=== PATIENT | male | born 1960 | race Caucasian/White ===

== ENCOUNTER → 2016-12-31 | Outpatient (CLI) | payer BC ==
--- NOTE | 2017-01-01 08:22 | MRI ---
Study: MRI of the Right Knee. Indication: KNEE PAIN Technique: Multiplanar, multi sequence MRI of the right knee was obtained without intravenous contrast. Comparison: None. Findings: Linear increased PD signal ACL indicating sequela of previous interstitial injury. PCL and lateral collateral ligament complex intact. MCL is lax and bowed indicating sequela of a remote MCL sprain. No acute tear. Prominent oblique undersurface tear posterior horn and body medial meniscus with mild intrasubstance cystic change as well as ill-defined parameniscal cyst formation along the peripheral margins of the posterior horn and body. The largest cyst along the peripheral margin of the junction measures up to 13 mm. Body extruded by 3 mm. Areas of grade 2 chondral thinning throughout the medial compartment. Degenerative signal anterior horn/root lateral meniscus.. No high-grade chondral defect throughout the lateral compartment. Low-grade tendinosis quadriceps tendon insertion and patellar tendon origin without tear. Patella normally located. No high-grade chondral defect patellofemoral compartment. Small knee effusion. No acute fracture. Impression: Oblique undersurface tearing posterior horn and body medial meniscus with parameniscal cyst formation as above. Degenerative signal anterior horn/root lateral meniscus. Mild medial compartment chondrosis. Remote MCL sprain. Remote interstitial injury ACL without acute tear. Low-grade tendinosis quadriceps tendon insertion and patellar tendon origin. Small knee effusion. Electronically signed by: Alex Hernandez MD 01/01/2017 8:20 AM CDT
== END | disposition home or self-care (01) ==
LOC: MRI 08:52
PROVIDERS: ATTEND Nurse Practitioner Family
DX: M25.461 Effusion, right knee (principal); M76.51 Patellar tendinitis, right knee

== ENCOUNTER 2018-04-16 09:51 | Inpatient (IN) | payer BC ==
[2018-04-16] MEDS ORDERED: SODIUM CHLORIDE 0.9% (FLUSH) 10 ML SYG IV PRN ×2 (10:02→13:40)
--- NOTE | 2018-04-16 10:19 | RAD ---
EXAM DESCRIPTION: Chest,1 View CLINICAL HISTORY: 58 years Male, ACUTE MENTAL STATUS CHANGES COMPARISON: 08/04/2008 IMPRESSION: The heart is enlarged, with borderline central pulmonary vascular congestion. There is no confluent airspace consolidation, pleural effusion, or pneumothorax. Normal variant azygos lobe again demonstrated. No acute osseous abnormality. Electronically signed by: Lawson Rutherford MD 04/16/2018 10:18 AM [employer]
--- NOTE | 2018-04-16 10:39 | CT ---
EXAM DESCRIPTION: Head. CT head without contrast. CLINICAL HISTORY: ACUTE AMS, ACUTE APHASIA COMPARISON: None available TECHNIQUE: Multiple axial images of the head without contrast. Multiplanar reformatted images. This exam was performed according to our departmental dose-optimization program, which includes automated exposure control, adjustment of the mA and/or kV according to patient size and/or use of iterative reconstruction technique. FINDINGS: There is no CT evidence of intracranial hemorrhage, mass effect, or large territory infarction. Mild generalized volume loss. Mild patchy supratentorial white matter hypodensities. There are no abnormal extra-axial fluid collections. Calcific plaque in the visualized arteries. There is no acute calvarial defect. The visualized paranasal sinuses and the mastoids are clear. IMPRESSION: 1. No CT evidence of an acute intracranial abnormality. If there is concern for an acute or subacute infarct, consider follow-up MRI. 2. Mild senescent changes. Electronically signed by: Lawson Rutherford MD 04/16/2018 10:38 AM [facility]
--- NOTE | 2018-04-16 11:05 | ED.PDOC ---
History of Present Illness - General Chief Complaint: Neuro Symptoms/Deficits Time Seen by Provider: 04/16/18 10:02 Source: patient, family - History of Present Illness Initial Comments: AT 9 AM TODAY, ACUTE ONSET OF SHORT-TERM MEMORY LOSS. PT SAID HE CALLED HIS AT THAT TIME BECAUSE HE WAS FEELING "FUNNY". DURING THEIR CONVERSATION, HIS NOTICED HE WAS HAVING TROUBLE REMEMBERING EVENTS FROM THE RECENT COUPLE OF DAYS, THUS BROUGHT TO ER. NO WEAKNESS OF EXTREMETIES, FACE. NO SPEECH PROBLEMS. JUST TROUBLE WITH RECALL. PMH NONE. MEDS NONE. Timing/Duration: 1-3 hours Severity: severe Improving Factors: nothing Worsening Factors: nothing Allergies/Adverse Reactions: Allergies NO KNOWN ALLERGY Allergy (Verified 04/16/18 10:15) Review of Systems - Review of Systems Constitutional: Denies: chills, fever, malaise, weakness EENTM: Denies: blurred vision, ear pain, nose congestion, throat pain Respiratory: Denies: cough, short of breath, wheezing Cardiology: Denies: chest pain, palpitations Gastrointestinal/Abdominal: Denies: abdominal pain, diarrhea, nausea, vomiting Genitourinary: Denies: dysuria, frequency Musculoskeletal: Denies: joint pain, muscle pain, neck pain Skin: States: no symptoms reported Neurological: States: other - APHSIA, SHORT TERM MEMORY LOSS. Denies: anxiety, depressed, headache, numbness, paresthesia, seizure, weakness Endocrine: Denies: excessive sweating, intolerance to cold, intolerance to heat Hematologic/Lymphatic: Denies: blood clots, easy bleeding, swollen glands Past Medical History (General) - Patient Medical History Hx Seizures: No Hx Stroke: No Hx Dementia: No Hx Asthma: No Hx of COPD: No Hx Cardiac Disorders: No Hx Congestive Heart Failure: No Hx Pacemaker: No Hx Hypertension: No Hx Thyroid Disease: No Hx Diabetes: No Hx Gastroesophageal Reflux: No Hx Renal Disease: No Hx Cancer: No Hx of HIV: No Hx Hepatitis C: No Hx MRSA: No - Vaccination History Hx Tetanus, Diphtheria Vaccination: No Hx Influenza Vaccination: No Hx Pneumococcal Vaccination: No Immunizations Up to Date: No - Social History Hx Tobacco Use: Yes Hx Chewing Tobacco Use: No Hx Alcohol Use: No Hx Substance Use: No Hx Substance Use Treatment: No Hx Depression: No Feels Threatened In Home Enviroment: No Feels Threatened In a Relationship: No Hx Physical Abuse: No Hx Emotional Abuse: No Hx Suspected Abuse: No - Activities of Daily Living Hospice Agency (if applicable):: None - Female History Patient is a Female of Child Bearing Age (10 -59 yrs old): No Patient : No Family Medical History - Family History Mother Family History: Unknown Physical Exam - Physical Exam General Appearance: Alert, Well Groomed, Well Nourished Eye Exam: bilateral normal ENT Exam: normal ENT inspection, hearing grossly normal, TMs normal, pharynx normal Neck: non-tender, full range of motion, supple Respiratory: chest non-tender, lungs clear, normal breath sounds, no respiratory distress Cardiovascular/Chest: normal peripheral pulses, regular rate, rhythm, no edema, no murmur Peripheral Pulses: radial,right: 2+, radial,left: 2+, dorsalis pedis,right: 2+, dorsalis pedis,left: 2+, posterior tibialis,right: 2+, posterior tibialis,left: 2+ Gastrointestinal/Abdominal: normal bowel sounds, non tender, soft, no organomegaly, no pulsatile mass Back Exam: normal inspection, no CVA tenderness Extremities Exam: non-tender, normal range of motion, no evidence of injury Mental Status: alert, other - INITIAL EXAM: OX1 (TO PLACE BUT DIDN'T KNOW WHO PRESIDENT WAS OR WHAT YEAR IT IS OR WHAT HE ORDERED ON [employer] LAST NIGHT.) UPON RE-EXAM 30 MIN LATER, HE IS OX3 AND REMEMBERS WHAT HE ORDERED ON [employer] LAST NIGHT. 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 UPON RE-EXAMINATION, PT'S MEMORY IS IMPROVING. HE NOW KNOWS WHAT YEAR IT IS AND NOW REMEMBERS THINGS HIS ASKED HIM TO HELP WITH YESTERDAY (UPON INITIAL ER PRESENTAION, HE DID NOT RECALL ANY EVENTS OF YESTERDAY). I REVIEWED THE ALTEPLASE CONTRAINDICATION CHECKLIST FOR ACUTE STROKE. PER D/W PT AND HIS OF RISKS, BENEFITS, AND ALTERNATIVES, THEY DO NOT WANT TO TAKE THE ALTEPLASE DUE TO RISKS. THEY WOULD LIKE TO CONTINUE TO OBSERVE IN ER SINCE HE IS IMPROVING, WHICH IS REASONABLE. 04/16/18 11:04 04/16/18 12:48 W/U IS WNL: CBC, CMP, CARDIAC ENZ, UA, UDS, CXR, HEAD CT, EKG NSR. PT IS BACK TO 100% PER PT, HIS , AND REPEAT EXAM. I D/W HOSPITALIST, MAXIME GANDHI, AND [facility] IS ACCEPTING CARE FOR OBSERVATION TO ENSURE NO RECURRENCE OR WORSENING. AT THAT TIME, THEY WILL CONSIDER FURTHER W/U SUCH MRI OR CAROTID U/S PER THEIR DISCRETION. THANK YOU MAXIME AND [facility] FOR ACCEPTING FURTHER CARE OF OUR PATIENT. Stroke Information - Onset of Symptoms Symptoms of Stroke: Aphasia - Contraindications Antithrombotic Contraindication: Treatment not indicated - PT IMPROVED RAPIDLY DURING ER ADMISSION, SX RESOLVED 100%. Departure - Departure Clinical Impression: TIA (transient ischemic attack), Aphasia Disposition: Admit Patient Condition: Good Departure Forms: Patient Portal Self Enrollment Diet: resume usual diet Referrals: Jaleel Yun MD [Primary Care Provider] - 1-2 Weeks Decision To Admit - Decistion To Admit Decision to Admit Reason: Admit from ER Decision to Admit Date: 04/16/18 Decision to Admit Time: 12:54
--- NOTE | 2018-04-16 13:20 | HP ---
SUPERVISING PHYSICIAN: Geraldo Wasserman M.D. CHIEF COMPLAINT: Altered mental status and confusion. HISTORY OF PRESENT ILLNESS: This is a 58 year-old male patient who about 9:00 AM this morning had a change in mental status. He was confused. His mother actually came over to his house and he forgot that he was supposed to go to [place] with his to a doctor's appointment. He did not know where he was, did not know what year it was. He lost all memory of the last several days and he was brought to the Emergency Room. In the Emergency Room he was found to have no weakness of his extremities or his face. He did not have any speech problems, he just had trouble with recent memory. His lab showed a WBC of 4.4 with hemoglobin 16, hematocrit 47.2, platelets 230. His chemistries were within normal limits, including his cardiac enzymes. Glucose was 93. Urinalysis was within normal limits. Urine drug screen was all negative. CT of the head showed no CT evidence of an acute intracranial abnormality and senescent changes. His chest x-ray showed the heart is enlarged with a borderline central pulmonary vascular congestion There is no confluent airspace consolidation, pleural effusion or pneumothorax and no acute osseous abnormality. While he was in the Emergency Room his memory came back. He could recall the current date. He had recent recall. He was afebrile. Heart rate 62, blood pressure 141/68, it did get as high as 153/71. Respiratory rate was 18, O2 sat was 98% on room air. He has no significant medical history except he does smoke and his dad has coronary artery stenosis as well as hypertension. I was called to place the patient in observation overnight to initiate a workup for stroke/transient ischemic attack. PAST MEDICAL HISTORY: 1. Knee pain. 2. Chronic sinus infection. PAST SURGICAL HISTORY: 1. Hernia repair. 2. Sinus surgery with a metal plate on his left sinus. 3. Meniscus repair of the right knee times 2. CURRENT MEDICATIONS: [id number] medications that include: 1. Flonase. 2. Romina. 3. Advil. ALLERGIES: NO KNOWN DRUG ALLERGIES. FAMILY HISTORY: His mother is healthy. His dad is positive for coronary artery stenosis and hypertension. He has 2 healthy children. SOCIAL HISTORY: He lives in [place]. He is unemployed. He has 2 children. He smokes approximately 2 packs of cigarettes per week. He rarely drinks and alcoholic beverage and denies any illicit drug use. REVIEW OF SYSTEMS: GENERAL: Positive for weight changes. He has tried to lose weight and he has lost about 20 pounds in the last 2 or 3 months. Negative for fatigue or fever. HEENT: Positive for left eye pain upon admission to the Emergency Room but negative for blurred vision, ear pain or sore throat. RESPIRATORY: Negative for coughing, wheezing or shortness of breath. CARDIAC: Negative for chest pain, palpitations or tachycardia. GASTROINTESTINAL: Negative for abdominal pain, nausea, vomiting, diarrhea. GENITOURINARY: Negative for dysuria, hematuria or polyuria. MUSCULOSKELETAL: Negative for arthralgias, myalgias or neck pain. SKIN: Negative for rashes or lesions. NEUROLOGIC: Positive for aphasia and short term memory loss. Negative for anxiety, headache, seizures or paresthesias. HEMATOLOGIC: Negative for easy bleeding, easy bruising or abnormal blood clotting. PHYSICAL EXAMINATION: VITAL SIGNS: Temperature 97.9, heart rate 56, blood pressure 115/75, respiratory rate 18, O2 sat 98% on room air. GENERAL: This is a 58 year-old male patient lying in his hospital bed. He is in no acute distress. HEENT: Normocephalic and atraumatic. Pupils are equal and reactive. Oropharynx is clear. NECK: Supple without mass. RESPIRATORY: Essentially clear to auscultation bilaterally. CHEST: There is equal rise and fall of the chest with inspiration and expiration. CARDIOVASCULAR: Regular rate and rhythm. He is slightly bradycardic. GASTROINTESTINAL: Abdomen is soft, nondistended, non-tender. Bowel sounds are positive. GENITOURINARY: Deferred. SKIN: Warm and dry. No lesions or rashes noted. EXTREMITIES: No clubbing, cyanosis or edema. NEUROLOGIC: He is awake, alert and oriented times three. Cranial nerves II- XII are grossly intact. LABORATORY: Labs and films are as per the History of Present Illness. He had a carotid artery ultrasound and it showed: 1) Mild atherosclerotic plaque in each carotid bulb and ICA origin. 2) There is no significant stenosis, less than 50% at each ICA origin. 3) Bilateral antegrade vertebral artery flow. All other labs and films have been reviewed via the EMR. ASSESSMENT: 1. Altered mental status with confusion and short term memory loss most likely a transient ischemic attack. 2. Elevated blood pressure without diagnosis of hypertension that is now normalized. 3. Chronic sinusitis requiring sinus surgery in the past. 4. Tobacco abuse presently a 2 pack per week smoker. PLAN: We will place the patient in Observation. I have initiated the CVA/TIA order set. He will be placed on an aspirin daily and I have restarted his over- the-counter home medications. He has not had a cardiac workup, so it would probably be beneficial at his age to have a cardiac workup. He sees Dr. Yun. He will also need an MRI of the brain. Will watch his blood pressure overnight as he may need to be started on a low dose of an antihypertensive. Will also do a fasting lipid panel in the morning as he also may need to be placed on a statin. Will do neurologic check every 2 hours. 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 He should be discharged in the morning if there are no issues overnight. #[id number] [facility]
[2018-04-16] MEDS ORDERED: TEMAZEPAM 15 MG CAP PO PRN (13:44)
[2018-04-16] MEDS ORDERED: ACETAMINOPHEN 325 MG TAB PO PRN (13:44)
[2018-04-16] MEDS ORDERED: ONDANSETRON INJ 4 MG/2 ML VIAL IV PRN (13:44)
[2018-04-16] MEDS ORDERED: IV SET AND CAP CHANGE INJ INJ SCH (14:00)
--- NOTE | 2018-04-16 16:07 | US ---
Procedure: US CAROTID DOPPLER BILATERAL Exam Date: 04/16/2018 Ordering Provider: MAXIME GANDHI Clinical Indication: tia Comparison: None TECHNIQUE : Real-time cerebrovascular ultrasonography was obtained from sternal notch to the angle of the mandible bilaterally utilizing nelson scale, color flow and spectral Doppler analysis. Systolic velocity ratios were calculated for internal carotid artery to common carotid artery bilaterally. FINDINGS: RIGHT CAROTID BIFURCATION: Mild atherosclerotic plaque. Peak systolic and end-diastolic velocities in the right internal carotid artery are 87 and 25 cm/s. Internal carotid/common carotid ratio is 0.9. Right vertebral flow is antegrade. LEFT CAROTID BIFURCATION: Mild atherosclerotic plaque. Peak systolic and end-diastolic velocities in the left internal carotid artery are 63 and 20 cm/s. Internal carotid/common carotid ratio is 0.6. Left vertebral flow is antegrade. IMPRESSION: 1. Mild atherosclerotic plaque in each carotid bulb and ICA origin. 2. There is no significant stenosis (less than 50%) at either ICA origin. 3. Bilateral antegrade vertebral artery flow. Electronically signed by: Yoav Peralta MD 04/16/2018 4:05 PM [facility]
[2018-04-16] MEDS: IBUPROFEN 400 MG TAB PO PRN (20:13)
[2018-04-16] MEDS: SODIUM CHLORIDE 0.9% (FLUSH) 10 ML SYG IV SCH (20:45)
[2018-04-16] MEDS ORDERED: ENOXAPARIN SODIUM 40 MG/0.4 ML SYG SUBCU SCH (21:00)
[2018-04-17] MEDS ORDERED: PANTOPRAZOLE SODIUM IV 40 MG VIAL ONE (04:02)
[2018-04-17] MEDS ORDERED: PANTOPRAZOLE SODIUM IV 40 MG VIAL IV SCH (06:30)
[2018-04-17] MEDS: SODIUM CHLORIDE 0.9% (FLUSH) 10 ML SYG IV SCH (08:50)
[2018-04-17] MEDS: IBUPROFEN 400 MG TAB PO PRN (08:55)
[2018-04-17] MEDS ORDERED: CETIRIZINE HCL 10 MG TAB PO SCH (09:00)
[2018-04-17] MEDS ORDERED: FLUTICASONE PROP 0.05% NASAL 16 GM BTTL BNAS SCH (09:00)
[2018-04-17] MEDS ORDERED: ASPIRIN TABLET 325 MG TAB PO SCH (09:00)
[2018-04-17 09:49] VITALS: BP 110/73; TEMP 97.9; O2SAT 98
--- NOTE | 2018-04-17 16:56 | DS ---
SUPERVISING PHYSICIAN: Geraldo Wasserman M.D. DISCHARGE DIAGNOSIS: 1. Altered mental status with confusion and short term memory loss most likely a transient ischemic attack. 2. Elevated blood pressure without diagnosis of hypertension that is now normalized. 3. Chronic sinusitis requiring sinus surgery in the past. 4. Chronic tobacco abuse presently a 2 pack per week smoker. HISTORY OF PRESENT ILLNESS: This is a 58 year-old male patient who on the morning of admission had some confusion and altered mental status. His mother actually came over to his house and he had forgotten that he was supposed to go to an appointment with his . He did not know what year it was and he lost memory of the last several days. His brought him to the Emergency Room. He was found to have no weakness in his extremities or his face. He did not have any speech problem. He just had trouble with recent memory and confusion. His lab showed a WBC of 4.4 with hemoglobin 16, hematocrit 47.2, platelets 230. Chemistries were within normal limits, including his cardiac enzymes. Glucose was 93. Urinalysis was within normal limits. Urine drug screen was all negative. CT of the head showed no CT evidence of an acute intracranial abnormality and senescent changes. His chest x-ray showed the heart is enlarged with a borderline central pulmonary vascular congestion There is no confluent airspace consolidation, pleural effusion or pneumothorax and no acute osseous abnormality. While in the Emergency Room his confusion and memory resolved. He could recall the current date and he had recent recall of events in the last few days. He was afebrile. Heart rate 62, blood pressure 141/68, it did get as high as 153/71. Respiratory rate was 18, O2 sat was 98% on room air. He had no significant medical history except he does smoke and his dad has coronary artery stenosis as well as hypertension and hyperlipidemia. The patient was placed in observation in the hospital to monitor his symptoms and further workup. HOSPITAL COURSE: The patient was placed in observation. He was started on a 325 aspirin. Initially his blood pressure was somewhat high but over the last 12 to 15 hours his blood pressure ran between 98/60 to 115/75. His heart rate was in the 50s and 60s. He had no further complaints of confusion or memory loss. He did have a carotid ultrasound done and his lab is stable with slightly low WBCs of 4,100, stable hemoglobin and hematocrit at 15.3 and hematocrit of 44.8. Chemistries were within normal limits. Triglycerides were 86, LDL 116.7, HDL 40, total cholesterol 177. TSH was 1.65. UA was negative. Carotid artery ultrasound showed: 1) Mild atherosclerotic plaque in each carotid bulb and ICA origin. 2) There is no significant stenosis, less than 50 % at either ICA origin. 3) Bilateral antegrade vertebral artery flow. At this point he is stable to be discharged home and he will be discharged home in stable condition. DISCHARGE PLAN: The patient will be discharged home in stable condition. He is to resume his previous activity. He will followup with Dr. Yun, his primary care physician, on 04/22/18 at 9:15. In addition to his over-the- counter medications that he takes at home, he is to continue with the 325 mg aspirin daily. It is recommended when he sees Dr. Yun that he have an MRI of the brain as well as a full cardiac workup. I elected not to put him on any antihypertensive or cholesterol lowering medications. I will leave that for Dr. Yun to decide at that time. He is to return to the hospital or call Dr. Yun's office for any problems or complications. DISCHARGE MEDICATIONS: 1. Aspirin 325 mg. #[id number] [facility]
== END 2018-04-17 11:00 | disposition home or self-care, planned readmission (81) | DRG 69 ==
LOC: ER 09:51 → MS 13:19 → OBSVTOIN 13:19 → INTOOBSV 13:19
PROVIDERS: ADMIT Nurse Practitioner Acute Care; ATTEND Nurse Practitioner Acute Care
DX: G45.9 Transient cerebral ischemic attack, unspecified (principal); R47.01 Aphasia; F17.210 Nicotine dependence, cigarettes, uncomplicated; J32.9 Chronic sinusitis, unspecified; I51.7 Cardiomegaly; I65.29 Occlusion and stenosis of unspecified carotid artery

== ENCOUNTER → 2018-04-29 | Outpatient (CLI) | payer BC ==
--- NOTE | 2018-04-29 14:40 | MRI ---
EXAM DESCRIPTION: Brain w/wo Contrast: Magnetic Resonance Imaging. CLINICAL HISTORY: TIA COMPARISON: None. TECHNIQUE: Multiplanar, high-field MRI, multiple conventional sequences, without and with gadolinium IV contrast. No adverse reactions. Multiple axial diffusion sequences. FINDINGS: Small focal hyperintense FLAIR and T2-weighted signal in the periventricular white matter of the left occipital lobe above the level of the left lateral ventricle and nelson-white matter junctions of the left temporal lobe below the left sylvian fissure. A lesion is associated with hemorrhage, cerebral edema, mass effect, or diffusion restriction. No abnormal contrast enhancement . Normal signal in the basal ganglia. No hemorrhage, no cerebral edema, no mass-effect. Normal contrast enhancement. Normal signal in the brainstem and cerebellar hemispheres. No hemorrhage, no cerebral edema, no mass-effect. Normal contrast enhancement. Concordance of the diffusion and non-diffusion sequences with no evidence of acute or subacute infarction. Cortical sulci, ventricles, and other CSF spaces, and the subdural spaces are normally configured. No effacement or displacement. No midline shift. No extra-axial hemorrhage. Normal contrast enhancement. Normal flow signal void in the major vessels of the [place], and the venous sinuses. IACs are symmetric bilaterally. Diffuse fluid signal involving most of the bilateral mastoid air cells. No mass effect in the bilateral Cerebellopontine angles. Normal contrast enhancement. Pituitary gland occupies the base of the sella. Normal contrast enhancement. Base of the cerebellar tonsils is just above the foramen magnum. Mucoperiosteal thickening involving most of the paranasal sinuses. The bony calvarium is intact. IMPRESSION: 1. 2 focal regions of abnormal white matter signal, one in the left temporal lobe above the level of the lateral ventricle, and the second in the anterior inferior left temporal lobe. Neither region associated with mass effect, cerebral edema, contrast enhancement, hemorrhage, or diffusion restriction. 2. Normal noncontrast diffusion scan with no evidence of acute or subacute infarction or ischemia. No extra-axial hemorrhage or fluid collection. 3. Diffuse bilateral mastoid inflammation. Minimal chronic paranasal sinus inflammation. Electronically signed by: Dinh Stubbs MD 04/29/2018 2:39 PM [employer]
== END ==
LOC: MRI 10:35
PROVIDERS: ATTEND Family Medicine
DX: G45.9 Transient cerebral ischemic attack, unspecified (principal)

== ENCOUNTER 2019-03-31 08:28 | Emergency (ER) | payer BC ==
[2019-03-31] MEDS ORDERED: MORPHINE SULFATE INJ 10 MG/ML VIAL ONE (08:49)
[2019-03-31] MEDS: SODIUM CHLORIDE 0.9% 1000ML 1,000 ML IVS ONE (08:55)
[2019-03-31] MEDS: ONDANSETRON INJ 4 MG/2 ML VIAL IV ONE (08:55)
[2019-03-31] MEDS: MORPHINE SULFATE INJ 10 MG/ML VIAL IV ONE (08:57)
--- NOTE | 2019-03-31 08:57 | ED.PDOC ---
History of Present Illness - General Chief Complaint: Problem Stated Complaint: left flank pain, abdominal pain Time Seen by Provider: 03/31/19 08:44 - History of Present Illness Initial Comments: 59 yo M PMH HL presents to ED at bedside c/o severe aching cramping 10/10 left sided flank pain radiating to LLQ abdomen diaphoretic and without position of comfort for 4 1/[address] Yun. Denies fever admits chills nausea denies vomiting diarrhea denies chest pain sob diaphoresis. Vomiting in the ED. No blood. Admits decreased appetite and disturbed rest also admits decreased urine output. No change in bowel movement. Former smoker occasional drinking denies FH HTN DM no other c/o today. Allergies/Adverse Reactions: Allergies NO KNOWN ALLERGY Allergy (Verified 04/16/18 10:15) Home Medications: Ambulatory Orders Acetaminophen W/ Codeine [Tylenol W/ CODEINE #3] 1 ea PO Q6H PRN #20 03/31/19 Aspirin [Gillian Low Dose] 81 mg PO DAILY 03/31/19 Atorvastatin Calcium [Lipitor] 20 mg PO DAILY 03/31/19 Nitrofurantoin Cap [Macrodantin Cap] 100 mg PO BID 7 Days #14 cap 03/31/19 Ondansetron Tab [Zofran Tab] 4 mg PO TID PRN 5 Days #15 tab 03/31/19 Tamsulosin HCl [Flomax] 0.4 mg PO DAILY #15 cap 03/31/19 Review of Systems - Review of Systems Constitutional: States: chills, diaphoresis, malaise EENTM: States: no symptoms reported Respiratory: States: no symptoms reported Cardiology: States: no symptoms reported Gastrointestinal/Abdominal: States: abdominal pain, nausea, vomiting Genitourinary: States: see HPI Musculoskeletal: States: no symptoms reported Skin: States: no symptoms reported Neurological: States: no symptoms reported Endocrine: States: no symptoms reported Hematologic/Lymphatic: States: no symptoms reported All other Systems: Reviewed and Negative Past Medical History (General) - Patient Medical History Hx Seizures: No Hx Stroke: Yes - TIA 2018 Hx Dementia: No Hx Asthma: No Hx of COPD: No Hx Cardiac Disorders: No Hx Congestive Heart Failure: No Hx Pacemaker: No Hx Hypertension: No Hx Thyroid Disease: No Hx Diabetes: No Hx Gastroesophageal Reflux: No Hx Renal Disease: No Hx Cancer: No Hx of HIV: No Hx Hepatitis C: No Hx MRSA: No Surgical History: other - Vaccination History Hx Tetanus, Diphtheria Vaccination: No Hx Influenza Vaccination: No Hx Pneumococcal Vaccination: No - Social History Hx Tobacco Use: Yes Hx Chewing Tobacco Use: No Hx Alcohol Use: No Hx Substance Use: No Hx Substance Use Treatment: No Hx Depression: No Hx Physical Abuse: No Hx Emotional Abuse: No Hx Suspected Abuse: No - Female History Patient : No Family Medical History - Family History Mother Family History: Unknown Physical Exam - Physical Exam General Appearance: Ill Appearing Eye Exam: bilateral normal Ears, Nose, Throat: normal ENT inspection Neck: non-tender, full range of motion Respiratory: lungs clear, normal breath sounds Cardiovascular/Chest: regular rate, rhythm, bradycardia Gastrointestinal/Abdominal: tenderness Rectal Exam: deferred Back Exam: CVA tenderness (L) Extremity: normal range of motion, non-tender 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 has kidney stones will d/c tylenol #3 ibuprofen nitrofurantoin flomax zofran f/u pcp, urology - Results/Orders Results/Orders: Laboratory Tests 03/31/19 03/31/19 08:45 08:45 WBC 9.8 RBC 4.89 Hgb 15.6 Hct 46.6 MCV 95.4 H MCH 32.0 H MCHC 33.5 RDW 12.6 Plt Count 225 MPV 8.3 Absolute Neuts (auto) 8.40 H Absolute Lymphs (auto) 0.90 L Absolute Monos (auto) 0.40 Absolute Eos (auto) 0.00 Absolute Basos (auto) 0.10 Neutrophils % 85.6 H Lymphocytes % 9.4 L Monocytes % 4.1 Eosinophils % 0.3 L Basophils % 0.6 Sodium 139 Potassium 4.6 Chloride 101 Carbon Dioxide 24 Anion Gap 18.6 H BUN 17 Creatinine 1.27 BUN/Creatinine Ratio 13.4 Random Glucose 160 H Serum Osmolality 282.5 Calcium 10.1 Total Bilirubin 0.8 AST 24 ALT 25 Alkaline Phosphatase 40 L Serum Total Protein 7.2 Albumin 4.6 Globulin 2.6 Albumin/Globulin Ratio 1.8 Lipase 29 Study: CT abdomen and pelvis. Indication: abdominal pain flank pain left Technique: CT of the abdomen and pelvis obtained without intravenous contrast. This exam was performed according to our departmental dose-optimization program, which includes automated exposure control, adjustment of the mA and/or kV according to patient size and/or use of iterative reconstruction technique. Comparison: None. Findings: Lower chest, liver, gallbladder, pancreas, spleen, adrenal glands, right kidney, bladder, prostate gland demonstrate a normal unenhanced CT appearance. 2 mm stone distal left ureter immediately proximal to the left UVJ with moderate left hydroureteronephrosis. Colonic diverticulosis. Small hiatal hernia. Small bowel and appendix unremarkable. No free fluid. No free air. No pathologically enlarged lymphadenopathy. Atherosclerosis aortoiliac arteries. Degenerative changes of the spine noted. Impression: 2 mm obstructing stone distal left ureter with moderate left hydroureteronephrosis. Additional findings as above. Electronically signed by: Alex Hernandez MD 03/31/2019 9:21 AM CDT Departure - Departure Clinical Impression: Kidney stones, Flank pain Abdominal pain Qualifiers: Abdominal location: generalized Qualified Code(s): R10.84 - Generalized abdominal pain Nausea & vomiting Qualifiers: Vomiting type: unspecified Vomiting Intractability: unspecified Qualified Code(s): R11.2 - Nausea with vomiting, unspecified ICD-10 Supporting Text: Please follow up with Urology Time of Disposition: 10:21 Disposition: Discharge to Home or Self Care Condition: Good Departure Forms: ED Discharge - Pt. Copy, Patient Portal Self Enrollment Instructions: DI for Kidney Stones Referrals: Jaleel Yun MD [Primary Care Provider] - 1-2 Weeks Prescriptions: Acetaminophen W/ Codeine [Tylenol W/ CODEINE #3] 1 ea PO Q6H PRN #20 PRN Reason: Pain Nitrofurantoin Cap [Macrodantin Cap] 100 mg PO BID 7 Days #14 cap Ondansetron Tab [Zofran Tab] 4 mg PO TID PRN 5 Days #15 tab PRN Reason: Nausea Tamsulosin HCl [Flomax] 0.4 mg PO DAILY #15 cap Home Medications: Ambulatory Orders Acetaminophen W/ Codeine [Tylenol W/ CODEINE #3] 1 ea PO Q6H PRN #20 03/31/19 Aspirin [Gillian Low Dose] 81 mg PO DAILY 03/31/19 Atorvastatin Calcium [Lipitor] 20 mg PO DAILY 03/31/19 Nitrofurantoin Cap [Macrodantin Cap] 100 mg PO BID 7 Days #14 cap 03/31/19 Ondansetron Tab [Zofran Tab] 4 mg PO TID PRN 5 Days #15 tab 03/31/19 Tamsulosin HCl [Flomax] 0.4 mg PO DAILY #15 cap 03/31/19
[2019-03-31] MEDS: KETOROLAC TROMETHAMINE INJ 30 MG/ML VIAL IV ONE (08:58)
--- NOTE | 2019-03-31 09:22 | CT ---
Study: CT abdomen and pelvis. Indication: abdominal pain flank pain left Technique: CT of the abdomen and pelvis obtained without intravenous contrast. This exam was performed according to our departmental dose-optimization program, which includes automated exposure control, adjustment of the mA and/or kV according to patient size and/or use of iterative reconstruction technique. Comparison: None. Findings: Lower chest, liver, gallbladder, pancreas, spleen, adrenal glands, right kidney, bladder, prostate gland demonstrate a normal unenhanced CT appearance. 2 mm stone distal left ureter immediately proximal to the left UVJ with moderate left hydroureteronephrosis. Colonic diverticulosis. Small hiatal hernia. Small bowel and appendix unremarkable. No free fluid. No free air. No pathologically enlarged lymphadenopathy. Atherosclerosis aortoiliac arteries. Degenerative changes of the spine noted. Impression: 2 mm obstructing stone distal left ureter with moderate left hydroureteronephrosis. Additional findings as above. Electronically signed by: Alex Hernandez MD 03/31/2019 9:21 AM CDT
[2019-03-31] MEDS: TAMSULOSIN 0.4 MG CAP PO ONE (10:13)
[2019-03-31 10:49] VITALS: BP 106/59; TEMP 97
[2019-03-31 10:51] VITALS: O2SAT 97
== END 2019-03-31 10:41 | disposition home or self-care (01) ==
LOC: ER 08:28
DX: N13.2 Hydronephrosis with renal and ureteral calculous obstruction (principal); Z86.73 Personal history of transient ischemic attack (TIA), and cerebral infarction without residual deficits; Z79.899 Other long term (current) drug therapy; Z79.82 Long term (current) use of aspirin; Z87.891 Personal history of nicotine dependence
CPT/HCPCS: 74176; 80053; 81001; 83690; 85025; J1885; J2270; J2405; J7030